=== PATIENT | male | born 1955 | race Caucasian/White ===

== ENCOUNTER → 2017-09-17 | Outpatient (CLI) | payer OTHER ==
[~2017-09-17] VITALS: Ht 185.4 cm; Wt 108.9 kg
[~2017-09-17] MED LIST: ACETAMINOPHEN1 EACH PO; ALDACTONE25 MG PO; ASPIR 8181 MG PO; ASPIRIN325 PO; ASPIRIN81 M2 PO; BAYER CHEWABLE81 MG PO; BENADRYL25 MG PO; BUPRENORPHIN-N1 EACH PO; CARAFATE 1 GM TA1 G1 PO; CARAFATE1 GM PO; CARAFATE1 GM/10 ML; CARDIZEM PO; CARVEDILOL12.5 MG PO; CARVEDILOL3.125 MG PO; CARVEDILOL6.25 MG PO; COREG CR20 MG PO; COREG CR40 MG PO; COREG6.25 MG PO; CYMBALTA30 MG PO; DUONEB 2.5-0.5 M3 ML INH; FUROSEMIDE 20 M20 MG PO; FUROSEMIDE 40 M40 M1 PO; GLUCOPHAGE1000 MG PO; GLUCOPHAGE500 MG PO; HORIZANT300 MG PO; HYDROCODONE-APA1 TA1 PO; HYDROXYZINE HCL25 M1 PO; IBUPROFEN 400400 M1 PO; IMDUR 30 MG TAB30 M1; INVANZ1 GM IJ; KEFLEX500 MG PO; LANOXIN 0.120.125 M1 PO; LASIX 20 MG TAB20 MG PO; LASIX 80 MG TAB80 MG PO; LEVOTHYROXIN0.075 MG PO; LIDODERM 5%1 PATC1 TOP; LIPITOR20 MG PO; LISINOPRIL10 MG PO; LISINOPRIL5 MG PO; LOVENOX30 MG/0.3 SQ; MS CONTIN 60 MG60 M1 PO; MS CONTIN 60 MG60 MG PO; MS CONTIN15 MG PO; MS CONTIN30 MG PO; NAPROSYN500 MG PO; NEURONTIN300 MG PO; NICOTINE TRANSD21 M1 TRANSDERM; NITROGLYCERIN0.4 MG SUBLING; NORCO 10-325 T1 EACH PO; NORCO 5-325 TA1 EACH PO; NOVOLIN N100 UNIT/3 SUBQ; NOVOLOG100 UNIT/1 SUBQ; ONDANSETRON HCL4 M2 PO; OXYCODONE HCL 55 MG PO; OXYCODONE HCL15 MG PO; OXYCODONE HCL30 MG PO; OXYIR 5 MG CAPSU5 M1 PO; PEPCID20 MG PO; PERCOCET 5-3251 EACH PO; PERCOCET 7.5-31 EACH PO; PERCOCET PO; PLAVIX 300 MG300 M1 PO; PLAVIX 75 MG TA75 M1 PO; POTASSIUM20 PO; PREDNISONE 10 M10 M1 PO; PREDNISONE 20 M20 MG PO; PRILOSEC40 MG PO; PROTONIX40 M1 PO; PROTONIX40 M2; PROTONIX40 M2 PO; PROVENTIL HFA6.7 G1 INH; RESTORIL15 MG PO; SUBOXONE 4 MG-1 EACH; SYNTHROID75 MCG PO; TYLENOL325 MG PO; XARELTO20 MG PO; ZESTRIL2.5 MG PO; ZIAGEN 300 MG300 MG; ZOFRAN ODT4 MG SUBLING
--- NOTE | ~2017-09-17 | HPC ---
[facility] [place] [address] PAIN MANAGEMENT CONSULTATION Name: KIRSTEN NAM Room #: REG [facility] Tomi#: [id number] Admission: 09/17/17 Attend Phys: Pio Echavarria DO Discharge: Date of : 55 Report #: [id number] THIS REPORT FOR: //name// CC: Pollo Echavarria The patient is a pleasant 62-year-old gentleman who was seen in consultation at the request of Dr. Barragan for evaluation of chronic pain management. The patient notes he has had "back pain" since 2005. Had prior been escalated to relatively high-dose opiate, MS Contin 60 mg b.i.d. His medical history is a little sketchy. It appears he had been on Suboxone for a period of time, [facility] reveals prescriptions filled in October, November and December for Suboxone 03/31. The first two at 60 tablets, the latter at 30 tablets. The patient states he had tried to wean off of opiates around the time he was developing pain in his left lower extremity secondary to gangrene. He is insulin-dependent diabetic with poor glucose control and atherosclerotic peripheral vascular disease. 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 Currently, he notes pain in the contralateral side, right low back into the hip and thigh. Does have a little phantom sensation, but no significant neuropathic pain in the left lower extremity. He states that the right low back pain began 2 months ago without antecedent trauma and overuse. He states he does have a prosthesis, though he is not wearing it presently. He is trying to work with physical therapy. States he can walk with a walker, but has ongoing back pain that is interfering with function. He rates this pain from 6-10 on a visual analog scale. States his pain is steady, burning, shooting, aching and stabbing. Currently, the patient was recently increased from a lower dose of MS Contin 30 mg b.i.d. to MS Contin 30 mg in the morning and 45 at night and does continue to use Percocet 7.5/325 up to 4 a day. This combination roughly equates to about 120 mEq of morphine a day. He is taking gabapentin 300 mg for neuropathic pain concerns. It is unclear how long he has been on this agent. He believes it is a single tablet at bedtime. REVIEW OF SYSTEMS: Complete review of systems attached to chart and was gone over with the patient. He is . He continues to smoke. He has a 45 pack-year smoking history down to half a pack a day. States he does not drink alcohol to excess. It is unclear if he currently resides in a [facility] facility (?), but he does have a home health physician managing his care. History of diabetes, though he lists no diabetic agents in his medication. History of coronary artery disease, status post RI and multiple stents, currently takes Xarelto, Plavix and digoxin. History of hypertension, treated with lisinopril and carvedilol. States he had a CVA in 2016, sounds like he had more of TIA type symptoms. He had left transient weakness. No expressive aphasia. Symptoms resolved without sequelae. Hypothyroid and takes Synthroid. [facility] [address] [place] [address] PAIN MANAGEMENT CONSULTATION Name: KIRSTEN NAM Room #: REG [facility] Krishna#: [id number] Admission: 09/17/17 Attend Phys: Pio Echavarria, DO Discharge: Date of : 55 Report #: [id number] PAST SURGICAL HISTORY: Includes the aforementioned endovascular stents x 2 in 2002 and 2013, the left BKA in 2016. 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 He is not receiving disability income. Pain impact score is 52/70. PHYSICAL EXAMINATION: VITAL SIGNS: He is 6 feet 1 inch, 240-pound gentleman, BMI is 31.7 kg/m2. Blood pressure is 150/80, pulse 82, respiratory rate 16. NEUROLOGIC: Cranial nerves 2-12 are grossly intact. HEENT: Pupils are equal and reactive to light and accommodation. Extraocular muscles are intact. There is no nystagmus, lateral gaze deviation. There is no facial asymmetry. There is modest thyroid hypertrophy. No nodules are noted. MUSCULOSKELETAL: Upper extremity strength is generally preserved. Range of motion is good. HEART: Regular rhythmical at this time. LUNGS: Clear. There are some coarse rhonchi in the bases. ABDOMEN: Benign. EXTREMITIES: The patient is in a wheelchair. He is not using a prosthesis. Right lower extremity range of motion is fairly good and strength is good. He is diffusely tender across the low back. There is no pinpoint tenderness in the midpoint. There are multiple trigger points in the lumbar paravertebral muscles. DIAGNOSTIC STUDIES: There are no recent diagnostic studies available for evaluation at this time. There is in the record a drug screen from 06/2016 noting positive for both hydrocodone and buprenorphine. The patient had been prescribed Suboxone tablets, but it appeared he had not been prescribed hydrocodone. ASSESSMENT: Chronic axial back pain, myofascial pain component, gentleman with history of atherosclerotic peripheral vascular disease, coronary artery disease, diabetic neuropathy, status post left below-knee amputation, history of opiate habituation, nicotine habituation. RECOMMENDATIONS: 1. Strongly recommend smoking cessation, both for general health reasons and for axial back pain. Did discuss with the patient that there is a large clinical evidence based body of literature relating nicotine use and axial back pain. 2. I will start the patient on Cymbalta 30 mg once a day to help with myofascial pain. 3. Recommend increased range of motion, axial stretching and core stability exercises once the patient is stable on his left BKA prosthesis. 4. Continue opiate medication per his home health physician, strongly recommend a gradual wean of opiates as he is at a supratherapeutic load presently (120 mg morphine equivalents daily, with CDC recommendations under 90 [facility] [address] [place] [address] PAIN MANAGEMENT CONSULTATION Name: KIRSTEN NAM Room #: REG [facility] Krishna#: [id number] Admission: 09/17/17 Attend Phys: Pio Echavarria DO Discharge: Date of : 55 Report #: [id number] mg of morphine daily). He may be exhibiting some opiate-induced hyperalgesia. May be a candidate for rotation to methadone with component of neuropathic pain. Would use the lower dose of the variable 4-6 : 1 conversion of methadone to morphine. Would recommend starting methadone at about 20 mg daily with low dose, i.e., 5 mg oxycodone p.r.n. limited to 3-4 a day. Thank you for allowing me to participate in the patient's care, no interventional therapy is warranted at this time, he may benefit from trigger point injections if axial back pain continues after he starts to do more range of motion, discontinue smoking and gets to a therapeutic dose on Cymbalta (likely 6-90 mg a day). Would need to be off of Plavix and Xarelto prior to any neuraxial interventions, though none are indicated at this time. <ELECTRONICALLY SIGNED> By: Pio Echavarria DO 09/20/17 0816 [id number] Pio Echavarria DO /nt
[2017-09-17 13:03] VITALS: BP 150/88
== END ==
LOC: PAIN 09-16 08:54
DX: M79.1 Myalgia (principal); I25.10 Atherosclerotic heart disease of native coronary artery without angina pectoris; E13.40 Other specified diabetes mellitus with diabetic neuropathy, unspecified; F11.20 Opioid dependence, uncomplicated; Z89.9 Acquired absence of limb, unspecified; Z86.79 Personal history of other diseases of the circulatory system; Z87.891 Personal history of nicotine dependence; Z96.653 Presence of artificial knee joint, bilateral